=== PATIENT | female | born 1950 | race Caucasian/White ===

== ENCOUNTER → 2021-07-12 | Outpatient (CLI) | payer MEDICARE, OTHER ==
[~2021-07-12] MED LIST: IOHEXOL 350 MG/ML 100 ML VIAL. IV ONE
[2021-07-12 15:29] LABS: CREATININE 0.9 mg/dL (0.6-1.0); GFR 61.7
--- NOTE | 2021-07-12 16:07 | RAD ---
Site ID: [id number] EXAMINATION: CTA chest. Technique: Axial images with coronal and sagittal reconstructions with MIP technique are performed of chest with angiogram protocol. 100 mL of Omnipaque 350 administered intravenously. One or more of the following radiation dose reduction techniques was used: automated exposure control , adjustment of mA and/or KV according to patient size, and/or utilization of iterative reconstructio n technique. HISTORY: 70 years Female Reason: POSITIVE D DIMER SOB ABNORMAL CHEST XRAY / COMPARISON: None. FINDINGS: The pulmonary arteries are well-opacified with no filling defects to suggest pulmonary embolism. The thoracic aorta is normal in caliber. No dissection. There is a focal the tree-in-bud the interstitial opacities seen in the right upper lobe anterior seg ment laterally suggestive of atypical infection. There is also a small area of focal consolidation se en in the medial aspect of the left upper lobe and lingula. No suspicious nodule or mass is seen. The heart size is normal. No pericardial or pleural effusion. There is no lymphadenopathy in the medi astinum or stephanie. No axillary lymphadenopathy. The osseous structures demonstrate mild degenerative changes. Sections in the upper abdomen demonstrate no significant abnormality IMPRESSION: 1. No pulmonary embolism or aortic dissection. 2. Scattered bilateral upper lobe predominantly interstitial mild opacities is likely secondary to an atypical infection. Electronically signed by: Ryan Davies MD (07/12/2021 4:04 PM) [id number]
== END ==
LOC: CT 14:37
PROVIDERS: ATTEND Family Medicine
DX: Z01.818 Encounter for other preprocedural examination (principal); R79.89 Other specified abnormal findings of blood chemistry; R93.89 Abnormal findings on diagnostic imaging of other specified body structures; R06.02 Shortness of breath; Z78.9 Other specified health status
CPT/HCPCS: 36415; 71275; 82565; 84520; Q9967